=== PATIENT | female | born 1960 | race Caucasian/White ===

== ENCOUNTER 2016-04-13 16:51 | Emergency (ER) | payer OTHER ==
[~2016-04-13 16:51] MED LIST: ASAB PO; ATIVAN2 MG PO; ATROVENTUD INH; AVINZA30 PO; CARASPUDL PO; DEPAKOT500 PO; DUONEB INH; JANTOVEN10 MG PO; JANTOVEN7.5 MG PO; KEPPRA1000 MG PO; KLONO2 PO; KLOR-CON M2020 MEQ PO; L40 PO; LORTAB10 PO; MORPHINE PO; MSCONTIN PO; MUCINEX1200 MG PO; NEUR600 PO; PERI-COLACE1 TAB PO; PROZAC40 MG PO; SPIRIVA INH; SYMBICORT 160/41 INH INH; SYN1 PO; SYN125 PO; TEGRETOL XR400 MG PO; VITAMIN D PO; XANAX1 MG PO; ZOFRAN8 PO
[2016-04-13 17:29] LABS: ASCORBIC ACID (UR NOT ORDER) NEG (NEG); BILIRUBIN, URINE NEGATIVE (NEG); ER URINALYSIS TAT 0 Hrs 10 Mins; KETONE, URINE TRACE MG/DL (NEG); LEUKOCYTE ESTERASE(NOT OR NEG (NEG); NITRITE (URINE) NEG (NEG); WBC (NOT ORDERED) (RFLEX) < 1 (0-5)
[2016-04-13 17:42] LABS: BASOPHILS 0.2 %; BASOPHILS ABSOLUTE 0.02 10/3/uL (0.0-0.16); EOSINOPHILS 1.3 %; EOSINOPHILS ABSOLUTE 0.13 10/3/uL (0.0-0.53); ER CBC TAT 0 Hrs 03 Mins; HEMATOCRIT 41.8 % (36.0-48.0); HEMOGLOBIN 13.1 g/dL (12.0-16.0); IMMATURE GRANULOCYTES 0.2 %; IMMATURE GRANULOCYTES ABSOLUTE 0.02 10/3/uL (0.0-0.11); LYMPHOCYTES 18.5 %; LYMPHOCYTES ABSOLUTE 1.87 10/3/uL (0.67-4.30); MEAN CORPUS HGB CONC 31.3 g/dL (32.0-36.0); MEAN CORPUSCULAR HEMOGLOB 28.7 pg (26.0-34.0); MEAN CORPUSCULAR VOLUME 91.7 fL (80-100); MONOCYTES ABSOLUTE 0.71 10/3/uL (0.21-1.20); NEUTROPHILS 72.8 %; NEUTROPHILS ABSOLUTE 7.36 10/3/uL (2.02-8.40); PLATELET COUNT 318 10/3/uL (150-400); RBC DISTRIBUTION WIDTH 17.1 % (12.0-16.0); RED CELL COUNT 4.56 10/6/uL (4.0-5.6); WHITE BLOOD CELLS 10.1 10/3/uL (4.5-10.5)
[2016-04-13 17:43] LABS: MANUAL DIFF NO %
[2016-04-13 17:58] LABS: A/G RATIO 0.5 (0.7-1.9); ALBUMIN 2.3 G/DL (3.5-5.0); ALKALINE PHOSPHATASE 106 U/L (45-117); BUN (BLOOD UREA NITROGEN) 2 MG/DL (6-23); CALCIUM, SERUM 8.1 MG/DL (8.5-10.4); CHLORIDE, SERUM 100 MMOL/L (96-112); CO2 (CARBON DIOXIDE) 31 MMOL/L (24-34); CREATININE 0.63 MG/DL (0.55-1.02); GFR AFRICAN AMERICAN 116 ML/MIN (>=60); GFR NON AFRICAN AMERICAN 100 ML/MIN (>=60); GLOBULIN 4.6 G/DL (2.5-4.1); GLUCOSE, SERUM 93 MG/DL (60-99); POTASSIUM, SERUM 3.3 MMOL/L (3.5-5.3); SGOT(AST) 28 U/L (5-40); SGPT(ALT) 24 U/L (5-65); SODIUM, SERUM 140 MMOL/L (135-148); TOTAL BILIRUBIN 0.4 MG/DL (0-1.2); TOTAL PROTEIN 6.9 G/DL (6.0-8.5)
[2016-05-01] MEDS ORDERED: SYN125 PO (15:34)
[2016-05-01] MEDS ORDERED: KLOR-CON M1010 MEQ PO (15:34)
[2016-05-01] MEDS ORDERED: ZOFRAN8 PO (15:35)
[2016-05-01] MEDS ORDERED: IMOD PO (15:35)
[2016-05-01] MEDS ORDERED: DUONEB INH (15:36)
[2016-05-01] MEDS ORDERED: ZOL50 PO (15:52)
[2016-05-01] MEDS ORDERED: PR25 PO (15:52)
[2016-05-01] MEDS ORDERED: MSCONTIN PO (15:52)
[2016-05-01] MEDS ORDERED: DEPAKOT500 PO ×2 (15:53)
[2016-05-01] MEDS ORDERED: TEG200 PO ×2 (15:54)
[2016-05-01] MEDS ORDERED: XANAX PO (15:55)
[2016-05-13] MEDS ORDERED: ATV.5 PO (10:58)
[2016-05-13] MEDS ORDERED: MS CONTIN PO (10:59)
[2016-05-13] MEDS ORDERED: P20 (11:00)
[2016-05-13] MEDS ORDERED: CARASPUDL (11:00)
[2016-05-13] MEDS ORDERED: PROTONIX PO (11:01)
[2016-05-13] MEDS ORDERED: MONUROL PO (12:05)
[2016-08-18] MEDS ORDERED: AUBAGIO14 MG PO (12:27)
[2016-08-18] MEDS ORDERED: VITAMIN B PO (12:59)
[2016-08-18] MEDS ORDERED: MSCONTIN PO (12:59)
[2016-08-18] MEDS ORDERED: FISH-EPA1000 MG PO (12:59)
== END 2016-04-13 20:19 | disposition home or self-care (01) ==
LOC: ER 16:51
PROVIDERS: Physician Assistant
DX: R11.2 Nausea with vomiting, unspecified (principal); R19.7 Diarrhea, unspecified; R10.9 Unspecified abdominal pain; J44.9 Chronic obstructive pulmonary disease, unspecified; J45.909 Unspecified asthma, uncomplicated; F41.9 Anxiety disorder, unspecified; Z79.82 Long term (current) use of aspirin; Z79.899 Other long term (current) drug therapy
CPT/HCPCS: 74176; 80053; 81001; 83690; 85025; 93005; 96374; 96375; 99285; J1980; J2405; J2550